=== PATIENT | male | born 1950 | race Caucasian/White ===

== ENCOUNTER → 2019-02-08 | Outpatient (CLI) | payer MEDICARE ==
--- NOTE | 2019-02-08 16:21 | MR ---
EXAMINATION TYPE: MR shoulder RT wo con DATE OF EXAM: 02/08/2019 COMPARISON: Outside shoulder x-ray January 26, 2019 HISTORY: Pain in right shoulder TECHNIQUE: Multiplanar, multisequence imaging of the right shoulder is performed without contrast. FINDINGS: Rotator Cuff: Distal supraspinatus and infraspinatus tendons are intact. No full thickness retracted tears seen. Subscapularis tendon is intact. Rotator cuff muscle bulk is preserved. Acromioclavicular Joint: Moderate to severe narrowing with mild to moderate capsular hypertrophy, los s of underlying fat plane suggesting impingement. Correlate clinically. Small spurring inferior aspec t of the distal acromion seen best coronal images 11 through 14. Glenohumeral Joint: Moderate to severe narrowing with small to moderate effusion. No significant spur ring. Labrum: The superior labrum shows some increased signal and coronal images for reference 11 through 1 3 felt to reflect degenerative tear. Biceps Tendon: The long head of biceps is in normal location within bicipital groove. Prominence of f luid surrounding proximal extracapsular portion. Bone marrow signal: Subchondral cystic change superolateral humeral head. Other: No additional significant abnormality is appreciated. IMPRESSION: 1. No rotator cuff tear is evident. 2. Fairly moderate to advanced degenerative changes as detailed above. Type III acromion with suggest ion of underlying impingement. 3. Bicipital tenosynovitis.
== END | disposition home or self-care (01) ==
LOC: RADMRIMAIN 13:53
PROVIDERS: ATTEND Orthopaedic Surgery
DX: M65.811 Other synovitis and tenosynovitis, right shoulder (principal)

== ENCOUNTER → 2022-01-29 | Outpatient (CLI) | payer MEDICARE ==
--- NOTE | 2022-01-29 09:13 | XR ---
EXAMINATION TYPE: XR lumbar spine with bend/flex DATE OF EXAM: 01/29/2022 8:43 AM INDICATION: Patient age:Male; 71 years old; Reason for study: M48.062 M54.5; [facility]. COMPARISON: MRI lumbar spine 02/28/2022. TECHNIQUE: Frontal, lateral , bilateral oblique , flexion, extension, and coned in L5-S1 lateral view s of the spine. FINDINGS: No acute fracture. There are 5 lumbar type vertebral bodies identified. Dextro sclerotic cu rvature with apex at L3. Postsurgical changes with right pedicular screws involving L3-L4 with disc s pacer identified at L3-L4 and L4-L5. Hardware appears intact. Multilevel facet arthropathy. Multileve l degenerative changes of the visualized spine with disc space narrowing, endplate sclerosis, and ant erior osteophyte formation. Grade 1 anterolisthesis of L5 on S1 and grade 1 anterolisthesis of L4 on L5. Mild retrolisthesis of L2 on L3. Vascular sclerosis. IMPRESSION: 1. No acute process. 2. Dextroscoliotic curvature with posterior fusion changes on the right at L3-L4 with additional dis c spacers at L3-4 and L4-L5. 3. Grade 1 anterolisthesis L5 on S1 and L4 on L5 with mild retrolisthesis of L2 on L3 redemonstrated . 4. Moderate multilevel degenerative disc disease.
--- NOTE | 2022-01-29 16:46 | MR ---
EXAMINATION TYPE: MR lumbar spine wo con DATE OF EXAM: 01/29/2022 8:17 AM COMPARISON: MRI spine 06/03/2010.. CLINICAL INDICATION:Male, 71 years old with history of M48.062 M54.5; TECHNIQUE: Multi planar, multi sequence imaging was performed utilizing: T1-weighted, T2-weighted, a nd turbo inversion recovery imaging of the lumbar spine. IV Contrast: None. FINDINGS: Alignment: The lumbar vertebral bodies have preserved heights. There is increased lordosis of the lum bar spine with dextroscoliosis apex L3-L4. Grade 1 anterolisthesis of L5 on S1. Cord: The conus medullaris and the distal spinal cord appear unremarkable with regards to their signa l intensity and morphology. Bones/Discs: Significant postsurgical changes are seen throughout the spine with fixation hardware ex tending from L3 and L4 on the right. Scattered Modic endplate changes most pronounced at the adjoinin g endplates of L4 and L5. Multilevel degenerative disc disease is noted and most pronounced at the L4 -L5 with discectomy changes. Mild bony edema on inversion recovery sequences of the adjoining vertebr al bodies of L1 and L2. Scattered multilevel disc desiccation is present L1-L2: Disc space narrowing with facet arthropathy result in moderate spinal canal stenosis. There is moderate right and moderate severe left neural foraminal stenosis left greater than right. This is w orse than prior. L2-L3: Disc bulge and facet joint arthropathy result in mild spinal canal stenosis and moderate to se cecilio bilateral neural foraminal stenosis L3-L4: Postsurgical changes in the right with hardware limiting evaluation slightly. The right neural foramen is patent there is moderate to severe neural foraminal stenosis of the left neural foramen ( series 401 image 6). The spinal canal is patent. This is improved from prior. L4-L5: Disc is surgically absent. Postsurgical changes. Hypertrophic bone formation involving the lef t facet joint encroaches upon the cauda equina and displaces it medially. Evaluation of the neural fo ramen is limited due to streak artifact on the right. There is moderate bilateral neural foraminal st enosis. L5-S1: Disc uncovering with disc bulge and facet joint arthropathy result in severe bilateral neural foraminal stenosis. Spinal canal is patent. This is improved from prior. Other findings: None. IMPRESSION: 1. Multilevel disc degeneration changes throughout the spine with spinal canal stenosis worse at L1- L2 with moderate spinal canal stenosis which is worse from prior. Other areas on prior of spinal leigha l narrowing have improved on this exam. 2. Multilevel neural foraminal stenosis as described above.
== END ==
LOC: RADMRIMAIN 07:03
PROVIDERS: ATTEND Neurological Surgery
DX: M51.36 Other intervertebral disc degeneration, lumbar region (principal); M43.17 Spondylolisthesis, lumbosacral region; M51.26 Other intervertebral disc displacement, lumbar region; M47.816 Spondylosis without myelopathy or radiculopathy, lumbar region; M41.86 Other forms of scoliosis, lumbar region; Z98.1 Arthrodesis status
CPT/HCPCS: 72114; 72148

== ENCOUNTER → 2022-12-23 | Outpatient (CLI) | payer MEDICARE ==
--- NOTE | 2022-12-23 14:57 | US ---
EXAMINATION TYPE: US carotid duplex BILAT DATE OF EXAM: 12/23/2022 COMPARISON: NONE CLINICAL INDICATION: Male, 72 years old with history of R00.1 BRADYCARDIA, UNSPECIFIED; TECHNIQUE: Carotid duplex ultrasound examination. Indirect Doppler criteria was utilized. FINDINGS: EXAM MEASUREMENTS: RIGHT: Peak Systolic Velocity (PSV) cm/sec ----- Right CCA: 122.6 ----- Right ICA: 130.7 ----- Right ECA: 114.5 ICA/CCA ratio: 1.1 RIGHT: End Diastole cm/sec ----- Right CCA: 19.2 ----- Right ICA: 20.8 ----- Right ECA: 12.8. 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 IMPRESSION: Moderate soft plaque demonstrated throughout the right common carotid artery. Mild elevated peak syst olic velocities within the right carotid arterial system with normal ratio suggesting 50-69% stenosis of the origin of the right internal carotid artery based on peak systolic velocity. This can be furt her evaluated with CTA neck as clinically indicated. No ultrasound evidence for hemodynamically signi ficant stenosis of the visualized left carotid arterial system. Criteria for Assigning % of Stenosis / Diameter reduction (Estimation based on the indirect measurements of the internal carotid artery velocities (ICA PSV). 1. Normal (no stenosis)=ICA PSV < 125 cm/s: ratio < 2.0: ICA EDV<40 cm/s. 2. Less than 50% stenosis=ICA PSV < 125 cm/s: ratio < 2.0: ICA EDV<40 cm/s. 3. 50 to 69% stenosis=ICA PSV of 125 to 230 cm/s: ration 2.0 ? 4.0: ICA EDV 40-100 cm/s. 4. Greater than 70% stenosis to near occlusion= ICA PSV > 230 cm/s: ratio > 4.0: ICA EDV > 100 cm/s. 5. Near occlusion= ICA PSV velocities may be low or undetectable: variable ratio and ICA EDV. 6. Total occlusion=unable to detect flow.
--- NOTE | 2022-12-23 19:51 | CA ---
Transthoracic Echo Report Name: Edward Beavers Age: 72 Gender: M : 1950 Exam Date: 12/23/2022 14:56 Exam Location: [place] [facility] Ht (in): 66 Wt (lb): 170 Ordering Physician: Herminio Badillo MD Attending/Referring Phys: Aleksandar Mesa PAC Roll Repairer Portia Salomon RDCS Procedure CPT: Indications: R00.1 Cardiac Hx: Technical Quality: Good Contrast 1: Total Dose (mL): Contrast 2: Total Dose (mL): MEASUREMENTS (Male / Female) Normal Values 2D ECHO LV Diastolic Diameter PLAX 4.2 cm 4.2 - 5.9 / 3.9 - 5.3 cm LV Systolic Diameter PLAX 2.9 cm IVS Diastolic Thickness 1.4 cm 0.6 - 1.0 / 0.6 - 0.9 cm LVPW Diastolic Thickness 1.4 cm 0.6 - 1.0 / 0.6 - 0.9 cm LV Relative Wall Thickness 0.6 RV Internal Dim ED PLAX 3.1 cm LA Systolic Diameter LX 3.8 cm 3.0 - 4.0 / 2.7 - 3.8 cm LV Diastolic Volume MOD 4C 138.7 cm??? LV Systolic Volume MOD 4C 70.7 cm??? LV Ejection Fraction MOD 4C 49.0 % LV Cardiac Index MOD 4C 2202.2 cm???/min???m??? LV Diastolic Length 4C 8.3 cm LV Systolic Length 4C 7.0 cm LV Diastolic Volume MOD 2C 66.7 cm??? LV Systolic Volume MOD 2C 19.3 cm??? LV Ejection Fraction MOD 2C 71.0 % LV Cardiac Index MOD 2C 1534.8 cm???/min???m??? LV Diastolic Length 2C 8.7 cm LV Systolic Length 2C 7.4 cm LA Volume 49.9 cm??? 18 - 58 / 22 - 52 cm??? LA Volume Index 26.1 cm???/m??? 16 - 28 cm???/m??? M-MODE Aortic Root Diameter MM 3.4 cm MV E Point Septal Separation 0.5 cm AV Cusp Separation MM 2.3 cm DOPPLER AV Peak Velocity 185.1 cm/s AV Peak Gradient 13.7 mmHg AI Peak Velocity 283.0 cm/s AI Peak Gradient 32.0 mmHg AI Pressure Half Time 702.1 ms MV Area PHT 2.9 cm??? Mitral E Point Velocity 58.3 cm/s Mitral A Point Velocity 80.4 cm/s Mitral E to A Ratio 0.7 MV Deceleration Time 265.6 ms MV E' Velocity 4.5 cm/s Mitral E to MV E' Ratio 13.0 FINDINGS Left Ventricle Left ventricular ejection fraction is estimated at 50-55 %. Left ventricular cavity size normal. Moderate concentric left ventricular hypertrophy. Right Ventricle Normal right ventricular size. Unable to estimate the right ventricular systolic pressure. Right Atrium Normal right atrial size. Left Atrium Normal left atrial size. Mitral Valve Structurally normal mitral valve. Trace mitral regurgitation. Aortic Valve Trileaflet aortic valve. Aortic valve sclerosis. Mild aortic regurgitation. Tricuspid Valve Structurally normal tricuspid valve. Trace tricuspid regurgitation. Pulmonic Valve Pulmonic valve not well visualized. No pulmonic regurgitation. Pericardium No pericardial effusion. Aorta Normal size aortic root and proximal ascending aorta. CONCLUSIONS LVH, moderate Left ventricular systolic function of about 50% Previewed by: Dr. Andrea Singh MD (Electronically Signed) Final Date: 23 December 2022 19:50
== END | disposition home or self-care (01) ==
LOC: RADUSWWP 14:20
PROVIDERS: ATTEND Family Medicine
DX: I65.21 Occlusion and stenosis of right carotid artery (principal); R00.1 Bradycardia, unspecified
CPT/HCPCS: 93306; 93880

== ENCOUNTER → 2023-01-22 | Outpatient (CLI) | payer MEDICARE ==
--- NOTE | 2023-01-22 18:16 | CT ---
EXAMINATION TYPE: CT chest wo con CT DLP: 284.4 mGycm, Automated exposure control for dose reduction was used. DATE OF EXAM: 01/22/2023 4:55 PM COMPARISON: None CLINICAL INDICATION:Male, 72 years old with history of R05.3 CHRONIC COUGH; PHH, c/o cough TECHNIQUE: Multiple axial images were obtained through the chest without IV contrast. Lack of IV or o ral contrast limits evaluation of solid and hollow organ viscera. . Coronal and sagittal reformats re viewed. FINDINGS: LUNGS/ PLEURA: No focal consolidation, pneumothorax, or pleural effusion. Left lower lobe 4 mm pulmon lisandro nodule (series 4, image 42). Additional 2 mm nodule along the left major fissure favored to repre sent an intrafissural lymph node (series 4, image 28). AIRWAY: Patent and unremarkable.. HEART: Size within normal limits. No pericardial effusion. Aortic valvular calcifications. Mild coron lisnadro artery calcifications. MEDIASTINUM: No gross evidence of adenopathy. VASCULATURE: No aortic aneurysm. MUSCULOSKELETAL: No acute osseous abnormalities. Partial visualization of lumbar fusion hardware. Deg enerative disc disease of the visualized lumbar spine. SOFT TISSUES/LYMPH NODES: Unremarkable. LOWER NECK: No significant findings. UPPER ABDOMEN: No significant findings. IMPRESSION: 1. No acute thoracic process. 2. Left lower lobe 4 mm pulmonary nodule. In a low-risk patient, no follow-up is recommended. In a hi gh-risk patient consider optional CT chest in 12 months.
== END | disposition home or self-care (01) ==
LOC: RADCTMAIN 16:40
PROVIDERS: ATTEND Family Medicine
DX: R05.3 Chronic cough (principal); R91.1 Solitary pulmonary nodule
CPT/HCPCS: 71250

== ENCOUNTER → 2023-03-04 | Outpatient (CLI) | payer MEDICARE ==
--- NOTE | 2023-03-04 18:06 | CT ---
EXAMINATION TYPE: CT lumbar spine wo con DATE OF EXAM: 03/04/2023 COMPARISON: None HISTORY: f/u on lumbar fusion CT DLP: 536.0 mGycm CONTRAST: None TECHNIQUE: CT of the lumbar spine is performed on a spiral scan at 3 mm thick sections. Reconstructed images are performed in the coronal and sagittal planes. FINDINGS: Pedicle screws are present L3-S1 on the right. T12-L1: No focal disc herniation or significant disc bulge is evident. No spinal canal stenosis or neural foraminal stenosis is present. L1-L2: There is sclerosis of the endplates. There is loss of disc height. Posterior endplate spurring is present with moderate anterior thecal sac impression. L2-L3: Mild residual disc has anterior thecal sac flattening. No AP spinal canal stenosis is present. Foraminal narrowing is present. L3-L4: There is a disc spacer at this level. No residual disc herniation or disc bulge is evident. No spinal canal stenosis present. Laminectomy is present. L4-L5: No focal disc herniation or significant disc bulge. Minimal spondylolisthesis of L4 anterior t o L5 may be present. L5-S1: Degenerative disc changes present through this level. No spinal canal stenosis is present. Millan inectomy is present. Posterior to the L4-5 level is some density change extending from the posterior lamina towards the sk in and subcutaneous tissue. No definite fluid collection is identified. No wall to suggest abscess is identified. This is higher density than CSF. Phlegmon and postsurgical change. Be considered. IMPRESSION: 1. Posterior soft tissue infection at the L4-5 level may be present posterior to the lamina in the pa raspinal region extending towards the subcutaneous tissue. 2. Mild grade 1 spondylolisthesis of L4 anterior to L5 and L5 anteriorly on S1. 3. Degenerative discs changes throughout the lumbar spine.
--- NOTE | 2023-03-05 07:24 | XR ---
EXAMINATION TYPE: XR lumbar spine with bend/flex DATE OF EXAM: 03/04/2023 CLINICAL HISTORY: pain COMPARISON: NONE TECHNIQUE: Frontal, lateral, and oblique images of the lumbar spine are obtained. Additional flexion and extension views obtained. FINDINGS: There is curvature convex to the right. There is evidence of lumbar fusion extending from L 3 through L5 S1. At neutral there is a 6 mm anterolisthesis of L5 on S1 which is at 6.1 mm on extensi on and 1.5 cm at flexion. Intervertebral body spacers noted. Right-sided pedicular screw seen. IMPRESSION: Postoperative alignment as noted.
== END | disposition home or self-care (01) ==
LOC: RADCTMAIN 17:10
PROVIDERS: ATTEND Family Medicine
DX: M48.061 Spinal stenosis, lumbar region without neurogenic claudication (principal); M43.16 Spondylolisthesis, lumbar region; M51.36 Other intervertebral disc degeneration, lumbar region
CPT/HCPCS: 72114; 72131

== ENCOUNTER → 2023-07-23 | Outpatient (CLI) | payer MEDICARE ==
--- NOTE | 2023-07-23 21:02 | MR ---
EXAMINATION TYPE: MR cervical spine wo con DATE OF EXAM: 07/23/2023 6:58 PM CLINICAL INDICATION:Male, 73 years old with history of M54.2 CERVICALGIA; PHH, Neck pain on left side , stiff neck for 2-3 months, no known injury. COMPARISON: . TECHNIQUE: Multiplanar, multisequential MR imaging of the cervical spine was performed without contra st. IV Contrast: cc (none if empty) FINDINGS: There is moderate to severe multilevel cervical spondylosis, with associated multilevel disc space na rrowing and mild degenerative vertebral body heights loss. There are some degenerative endplate signa l changes. No suspicious T1 dark lesions or significant edema on STIR. Craniocervical junction is intact. Imaged posterior fossa structures are within normal limits. No cer ebellar tonsillar ectopia. C1-C2: Degenerative change of the anterior C1-C2 articulation with retrosternal soft tissue thickenin g mildly narrowing the anterior space available for the cord without evidence of mass effect or signa l abnormality. C2-C3: Mild broad-based posterior disc bulge. Mild facet disease. No significant spinal canal or fora maximo stenosis. C3-C4: Mild transverse spondylotic ridging and mild facet disease, cause moderate to severe left and [id number] right neural foraminal stenosis. Mild indentation across the anterior thecal sac and mild canal stenosis, without evidence of mass effect on the cord. C4-C5: Transverse disc osteophyte complex and mild to moderate facet arthrosis, greater on the left.. There is mild transverse indentation on the anterior thecal sac without abutting the cord or signal abnormality. Mild to moderate left and mild right neuroforaminal stenosis. C5-C6: Moderate to large posterior disc osteophyte complex and trace retrolisthesis C5 on C6 as well as moderate bilateral facet disease, results in moderate to severe indentation along the anterior the ana sac and canal stenosis. There is mass effect on the cord which appears moderately transversely fl attened with mild increased T2 STIR signal. Moderate bilateral neural foraminal stenosis. C6-7, there is moderate transverse disc osteophyte complex and mild to moderate bilateral facet arthr osis. There is moderate indentation on the anterior thecal sac and canal stenosis. There is mass effe ct on the cord which appears mildly transversely flattened with minimal increased T2 STIR signal sugg isaac. Moderate bilateral neural foraminal stenoses. C7-T1: Mild to moderate transverse disc osteophyte complex and mild facet disease. There is mild/mode rate circumferential canal stenosis, greatest in the left posterior paracentral region, with mild lef t anterior indentation on the thecal sac and mild deformity of the left cord with no significant appr eciable cord signal abnormality. T1-T2: There is mild disc space narrowing with small posterior disc osteophyte complex. Mild facet di sease. No significant spinal canal or neural foraminal stenosis. Similar findings T2-T3 and T3-T4 as well. Sagittal imaging shows mild reversal of the normal cervical lordosis throughout, trace degenerative a nterolisthesis C3 on C4, and approximately 2.5 mm degenerative retrolisthesis C5 on C6. No significan t listhesis seen farther inferiorly. No evidence of intracanalicular fluid collection or mass. Other: No increased signal seen in the visualized paraspinous musculature. No significant prevertebra l fluid is identified. IMPRESSION: 1. Moderate to severe multilevel cervical spondylosis, detailed level by level above. 2. Most significantly, at C5-C6, there is moderate to large posterior disc osteophyte complex and tr juan retrolisthesis C5 on C6 as well as moderate bilateral facet disease, resulting in moderate to sev ere indentation along the anterior thecal sac and canal stenosis. Mass effect on the cord which appea rs moderately transversely flattened with mildly increased signal suggesting edema or myelomalacia. M oderate bilateral neural foraminal stenosis. 3. At C6-7, there is moderate transverse disc osteophyte complex and mild to moderate bilateral face t arthrosis. There is moderate indentation on the anterior thecal sac and moderate canal stenosis. So me mass effect on the cord which appears mildly transversely flattened with minimal increased signal suggested. Moderate bilateral neural foraminal stenoses. 4. At C7-T1, mild to moderate transverse disc osteophyte complex and mild facet disease. There is mi ld/moderate circumferential canal stenosis, greatest in the left posterior paracentral region, with m ild left anterior indentation on the thecal sac and mild deformity of the left cord with no significa nt appreciable cord signal abnormality. 5. No evidence of intracanalicular fluid collection.
== END | disposition home or self-care (01) ==
LOC: RADMRIMAIN 17:56
PROVIDERS: ATTEND Family Medicine
DX: M47.812 Spondylosis without myelopathy or radiculopathy, cervical region (principal); M25.78 Osteophyte, vertebrae; M43.12 Spondylolisthesis, cervical region; M99.71 Connective tissue and disc stenosis of intervertebral foramina of cervical region
CPT/HCPCS: 72141